=== PATIENT | female | born 1945 | race Caucasian/White ===

== ENCOUNTER 2017-05-30 13:25 | Outpatient (CLI) | payer MEDICARE, BC | END 2017-05-30 13:26 | disposition home or self-care (01) | DRG 556 | LOC: CONVCARE 13:25 | PROVIDERS: ATTEND Orthopaedic Surgery | DX: M25.561 Pain in right knee (principal); M17.11 Unilateral primary osteoarthritis, right knee | CPT/HCPCS: 73564 ==

== ENCOUNTER 2018-08-06 08:52 | Day surgery (SDC) | payer OTHER ==
[~2018-08-06 08:52] MED LIST: LIDOCAINE HCL 1% MPF 30 SOL ONE; PROPOFOL 500 MG/50 ML EMU IV ONE
[2018-08-06 10:13] VITALS: BP 112/70; PULSE 62; RESP 18; TEMP 97.1; O2SAT 100
== END 2018-08-06 10:32 | disposition home or self-care (01) | DRG 951 ==
LOC: SURG 08:52
PROVIDERS: ATTEND Surgery
DX: Z12.11 Encounter for screening for malignant neoplasm of colon (principal); K57.32 Diverticulitis of large intestine without perforation or abscess without bleeding; Z80.0 Family history of malignant neoplasm of digestive organs
CPT/HCPCS: J2001; J2704